=== PATIENT | female | born 1935 | race Caucasian/White ===

== ENCOUNTER 2019-07-06 13:17 | Inpatient (IN) | payer SELFPAY ==
[~2019-07-06] VITALS: Ht 170.2 cm; Wt 68.5 kg
--- NOTE | 2019-07-06 13:20 | NUR ---
PT bibdaughter from home, came in due to increasing anxiety, not eating and taking her meds,changes in behavior last 2-3 months, pt is aaox4, not in respiratory distress ,hooked to monitor, kept rested and comfortable, will continue to monitor.
--- NOTE | 2019-07-06 13:35 | NUR ---
SEEN AND EXAMINED BY .
--- NOTE | 2019-07-06 13:50 | NUR ---
ER PHLEB AT BEDSIDE FOR BLOOD DRAW.
--- NOTE | 2019-07-06 13:57 | NUR ---
URINAL GIVEN BUT UNABLE TO PROVIDE URINE SPECIMEN THIS TIME.
[2019-07-06 13:59] LABS: BASOPHILS % (AUTO) 0.4 % (0.0-2.0); EOSINOPHILS % (AUTO) 0.4 % (0.0-6.0); HEMATOCRIT 37 % (33-45); HEMOGLOBIN 12.5 g/dL (11.5-14.8); LYMPHOCYTES # (AUTO) 0.7 /CMM (0.8-4.8); MEAN CORPUSCULAR HGB CONC 34 g/dl (31.0-36.0); MEAN CORPUSCULAR VOLUME 98 fL (82-100); MONOCYTES # (AUTO) 0.5 /CMM (0.1-1.30); MONOCYTES % (AUTO) 8.8 % (2.0-12.0); NEUTROPHILS # (AUTO) 4.8 /CMM (1.8-8.9); NEUTROPHILS % (AUTO) 78.4 % (43.0-81.0); PLATELET COUNT (AUTO) 213 /CMM (150-450); RED BLOOD CELL COUNT(AUTO) 3.75 MIL/uL (4.0-5.2); WHITE BLOOD COUNT (AUTO) 6.1 K/uL (4.3-11.0)
[2019-07-06 14:06] LABS: CARBON DIOXIDE 29 mmol/L (21-32); CHLORIDE 97 mmol/L (98-107); CREATININE 1.1 mg/dL (0.6-1.3); GLUCOSE 157 mg/dL (74-106); POTASSIUM 4.3 mmol/L (3.5-5.1); SODIUM SERUM 130 mmol/L (136-145); UREA NITROGEN, BLOOD 18 mg/dL (7-18)
[2019-07-06] MEDS ORDERED: ZOLP10TA2 PO (14:07)
[2019-07-06] MEDS ORDERED: EZET10TA16 PO (14:07)
[2019-07-06] MEDS ORDERED: LISI10TA5 PO (14:07)
[2019-07-06] MEDS ORDERED: ESCI10TA PO (14:07)
[2019-07-06] MEDS ORDERED: MELA5TAB PO (14:07)
[2019-07-06] MEDS ORDERED: LISI-603 PO (14:07)
[2019-07-06] MEDS ORDERED: CLON0.5T4 PO ×2 (14:07)
--- NOTE | 2019-07-06 14:19 | NUR ---
urine specimen collected and sent to lab.
[2019-07-06 14:25] LABS: ALANINE AMINOTRANSFERASE 23 U/L (12-78); ALBUMIN 3.7 g/dL (3.4-5.0); ALCOHOL, BLOOD < 3 mg/dL (0-0); ALKALINE PHOSPHATASE 59 U/L (46-116); ASPARTATE AMINOTRANSFERASE 16 U/L (15-37); BILIRUBIN,DIRECT 0.1 mg/dL (0.0-0.2); BILIRUBIN,TOTAL 0.2 mg/dL (0.2-1.0); SALICYLATE 1.4 mg/dL (2.8-20.0); TOTAL PROTEIN, SERUM 6.4 g/dL (6.4-8.2)
[2019-07-06 14:26] LABS: ACETAMINOPHEN < 2 ug/ml (10-30)
[2019-07-06 14:29] LABS: APPEARANCE,URINE SL CLOUDY (CLEAR); BILIRUBIN,URINE NEGATIVE (NEGATIVE); BLOOD, URINE NEGATIVE Ery/uL (NEGATIVE); COLOR,URINE YELLOW (YELLOW); KETONES,URINE NEGATIVE (NEGATIVE); LEUKOCYTE ESTERASE ,URINE NEGATIVE (NEGATIVE); NITRITE, URINE NEGATIVE (NEGATIVE); PROTEIN,URINE NEGATIVE (NEGATIVE); UGLUCOSE NEGATIVE (NEGATIVE); UROBILINOGEN,URINE 0.2 EU/dL (0.2)
--- NOTE | 2019-07-06 14:31 | NUR ---
RADHA BHATIA AT BEDSIDE FOR EVAL.
[2019-07-06 14:49] LABS: BACTERIA,URINE 1+ /HPF (None Seen); RBC,URINE 0-2 /HPF (0-2); SQUAMOUS EPITHELIAL CELL,UR Moderate /HPF (None Seen); WBC,URINE 0-2 /HPF (0-3)
--- NOTE | 2019-07-06 15:46 | NUR ---
NURSING SUP GAVE [facility] BED 217A.
--- NOTE | 2019-07-06 16:02 | NUR ---
REPORT GIVEN TO JANNETTE JOYCE FOR SANDEEP.
[2019-07-06] MEDS ORDERED: ACETAMINOPHEN 325 MG TABLET PO PRN (17:00)
[2019-07-06] MEDS ORDERED: ZOLPIDEM TARTRATE 5 MG TABLET PO PRN (17:00)
[2019-07-06] MEDS ORDERED: BLOOD SUGAR DIAGNOSTIC 1 EACH STRIP IN ONE (17:00)
[2019-07-06] MEDS ORDERED: MAG HYDROX/AL HYDROX/SIMETH 30 ML UDC PO PRN (17:00)
[2019-07-06] MEDS ORDERED: LORAZEPAM 0.5 MG TABLET PO PRN (17:00)
--- NOTE | 2019-07-06 17:46 | NUR ---
Dr. Sharma made aware of the admission and with orders and Bertrand RNP made of gianna admission and reconciled meds.
[2019-07-06] MEDS ORDERED: ZOLPIDEM TARTRATE 10 MG TABLET PO PRN (18:00)
--- NOTE | 2019-07-06 19:00 | NUR ---
GPS OIL FIRE SPECIALIST NOTES: PT WAS ADMITTED TO [facility] AT 07/06/19 AT 1640 FROM ER DEPARTMENT. PT IS A 83 Y/O FEMALE. ON A VOLUNTARY HOLD. PER PT CLAIMS SHE IS HERE BECAUSE SHE CANT SLEEP. UPON FACE TO FACE ASSESSMENT PT IS A/ O X3-4, COOPERATIVE, ANXIOUS, WORRIED, FRIENDLY AND NEEDY. PT CHAVEZ SI AND HI AT THIS TIME. PT STATED, "IM HERE BECAUSE I WASNT ABLE TO SLEEP." PT SIGNED CONSENT PAPERS. ENVIRONMENTAL SAFETY CHECK Q15MIN. ENCOURAGE PT TO VERBALIZE FEELINGS AND CONCERNS. ORIENTED TO THE UNIT. BELONGING AND CONTRABAND WERE DONE AND CHECKED. NURSINF ASSESSMENT DONE.. SKIN INTACT AND FACE PICTURE IN THE CHART. PT RIGHTS DISCUSS BY HEADING MATCHER AND ASSEMBLER. PROVIDED PT WITH HANDBOOK AND MED GUIDE. VITALS TAKEN ANS WNL. NO S/S PF RESP DISTRESS. BREATHING EVEN AND UNLABORED. CONTINUE TO MONITOR.
[2019-07-06 20:00] VITALS: BP 144/83
[2019-07-06] MEDS: MAGNESIUM HYDROXIDE 30 ML UDC PO PRN (21:44)
--- NOTE | 2019-07-06 21:45 | NUR ---
GPS RN NOTES: C/O OF CONSTIPATION PT C/O OF CONSTIPATION. PT STATED, " I FEEL CONSTIPATED". OFFERED MOM 15ML. PT AGREED AND TOLERATED MEDICATION WELL. CONTINUE TO MONITOR.
--- NOTE | 2019-07-06 22:57 | NUR ---
GPS RN NOTES: C/O OF INSOMNIA PT C/O UNABLE TO SLEEP. [id number] AMBIEN 5MG PO PRN ORDERED. PT AGREED AND TOLERTAED MEDICATION WELL. CONTINUE TO MONITOR.
[2019-07-06 23:48] VITALS: BP 144/83
--- NOTE | 2019-07-07 02:13 | NUR ---
GPS RN NOTES:C/O ANXIOUS PT C/O OF FEELING ANXIOUS. CHECKED PT VITALS WNL. OFFERED ATIVAN 1MG PO PRN ORDERED. PT AGREED AND TOLERATED MEDICATION WELL. CONTINUE TO MONITOR.
[2019-07-07 02:16] VITALS: BP 143/60
[2019-07-07 07:48] LABS: ALBUMIN 3.5 g/dL (3.4-5.0); BILIRUBIN,TOTAL 0.3 mg/dL (0.2-1.0); CALCIUM, SERUM 9.2 mg/dL (8.5-10.1); CREATININE 0.7 mg/dL (0.6-1.3); POTASSIUM 4.7 mmol/L (3.5-5.1); TOTAL PROTEIN, SERUM 6.3 g/dL (6.4-8.2)
[2019-07-07 07:58] LABS: CHOLESTEROL 182 mg/dL (<200); HDL CHOLESTEROL 69 mg/dL (40-60); LDL 99 mg/dL (0-99); TRIGLYCERIDES 92 mg/dL (30-150)
[2019-07-07 08:00] VITALS: BP 121/76
[2019-07-07] MEDS: LISINOPRIL (10MG) 10 MG TABLET PO SCH (08:53)
[2019-07-07] MEDS: EZETIMIBE 10 MG TABLET PO SCH (08:53)
--- NOTE | 2019-07-07 10:31 | NUR ---
INDIVIDUAL MEETING: KAJAL met with 83 year old pt at [facility] who was BIB daughter from home due to increased anxiety and depression. Pt was admitted to [facility] as a voluntary admission. Pt is unhappy with the treatment she is currently receiving stating, "I was expecting to be in a private room since I am paying out of pocket to be here, I was expecting to be under 24 hour evaluation by a treatment team that will be monitoring my blood level and see how my medication is affecting me and if it works. I was expecting to be hooked up to machines and a study to be happening." Pt then stated that she was unhappy that her belongings were confiscated and that she was unable to have a cell phone, hand dewaxer, or medications available to her. Pt was in distress and kept putting her hands to her face when KAJAL explained the policies and procedures for the unit. SW also informed her that psychiatrist will be coming on this present day to evaluate her and pt was upset that he still has not seen her. KAJAL explained that MD's have 24 hours from admission to see a pt and pt became agitated. Pt stated that she wanted to leave as she was not receiving the care she was hoping for and SW encouraged her to wait for psychiatrist to evaluate her and discuss treatment before making a decision. Pt agreed.
--- NOTE | 2019-07-07 10:45 | NUR ---
FAMILY CONTACT: SW contacted pts daughter Emily [phone] and left a voicemail for callback to discuss pts treatment and discharge plan.
--- NOTE | 2019-07-07 12:26 | NUR ---
TREATMENT TEAM MEETING: and KAJAL met with pt at bedside to discuss pts treatment plan. Pt is resistant to treatment and focused on MD not tapering down on the Klonopin. reminded pt that she is here voluntarily and can leave at anytime she wishes. also informed pt that she can continue her treatment and medication management with her outside psychiatrist. Pt stated that she did not want to make a decision before speaking to her daughter first.
--- NOTE | 2019-07-07 13:24 | NUR ---
GPS/RN-NOTES SOCIAL SERVICES COORDINATOR VERIFIED REGARDING KLONOPIN ORDER WITH DR. DRAKE.DESPITE SOCIAL SERVICES COORDINATOR MADE DR. DRAKE AWARE REGARDING PATIENT'S DTR CAN PERALTA STATEMENT EARLIER IN THE MORNING BY PHONE THAT PATIENT CAN NOT TAKE KLONOPIN. . DR. DRAKE STATED" TO OK TO GIVE KLONOPIN ORDERED".
[2019-07-07] MEDS: clonazePAM 0.5 MG TABLET PO SCH ×2 (13:38→17:02)
[2019-07-07] MEDS: ESCITALOPRAM OXALATE (10 MG) 10 MG TABLET PO SCH (13:38)
[2019-07-07] MEDS ORDERED: CRANBERRY PO (14:47)
[2019-07-07] MEDS ORDERED: CRANBERRY PO SCH (15:30)
[2019-07-07] MEDS ORDERED: D MANNOSE PO SCH (15:30)
[2019-07-07 16:00] VITALS: BP 101/60
[2019-07-07] MEDS: OXYBUTYNIN CHLORIDE ER 5 MG TAB PO SCH (17:02)
[2019-07-07 20:35] VITALS: BP 101/62
[2019-07-07] MEDS: MAGNESIUM HYDROXIDE 30 ML UDC PO PRN (21:22)
[2019-07-07] MEDS ORDERED: QUETIAPINE FUMARATE 25 MG TABLET PO SCH (22:00)
[2019-07-08 09:00] VITALS: BP 126/75
[2019-07-08] MEDS ORDERED: METFORMIN 500 MG TABLET PO SCH (09:00)
[2019-07-08] MEDS: ESCITALOPRAM OXALATE (10 MG) 10 MG TABLET PO SCH (09:08)
[2019-07-08] MEDS: OXYBUTYNIN CHLORIDE ER 5 MG TAB PO SCH (09:08)
[2019-07-08] MEDS: EZETIMIBE 10 MG TABLET PO SCH (09:08)
[2019-07-08] MEDS: clonazePAM 0.5 MG TABLET PO SCH (09:08)
[2019-07-08 09:09] VITALS: BP 126/75
[2019-07-08] MEDS: LISINOPRIL (10MG) 10 MG TABLET PO SCH (09:09)
--- NOTE | 2019-07-08 09:10 | NUR ---
INITIAL DISCHARGE PLAN: Pt wishes to return home [address] [facility] [address]. SW will help form a safe and proper discharge in collaboration with .
[2019-07-08] MEDS ORDERED: hydrOXYzine PAMOATE 50 MG CAPSULE PO PRN (09:30)
[2019-07-08] MEDS ORDERED: CRANBERRY PO SCH (10:00)
[2019-07-08] MEDS ORDERED: D MANNOSE PO SCH (10:00)
[2019-07-08] MEDS ORDERED: hydrOXYzine PAMOATE 25 MG CAPSULE PO PRN (10:00)
--- NOTE | 2019-07-08 11:04 | NUR ---
FAMILY CONTACT: SW received a call from pts daughter Juliana [phone], SW explained treatment and diagnosis. SW informed daughter that pt was diagnosed with Diabetes and Hyperactive Bladder and is now receiving medication for it. SW also stated that pt slept 8 hours last night and is responding well to the new medication regimen. Daughter stated that she wanted to pick pt up on this present day and SW proceeded with pts discharge planning.
--- NOTE | 2019-07-08 11:13 | NUR ---
DISCHARGE NOTE: Pt will be discharged at 1:00pm via private vehicle home to [address] [place] [address]. Pts daughter Juliana [phone] will be picking pt up and transporting home. Pts mood is euthymic with congruent affect. Pt denied visual/auditory hallucinations and denied suicidal/homicidal ideation. Pt will be under the care of Psychiatrist: Dr. Shea Mcnamara Address: [address], [place] [address] and Validation Software Facilitator: Dr. Adebayo Maravilla Address: [address], [place] [address] . The multidisciplinary exit care form was done, printed, signed, and given to the patient. Addendum: 07/08/19 at 1122 by RONALDO RDZ KAJAL faxed clinicals to Psychiatrist: Dr. Shea Mcnamara Address: [address], [place] [address] and left a voicemail for a follow up appointment. Pt will also follow up at [facility] [address] [place] [address] .
--- NOTE | 2019-07-08 13:45 | NUR ---
GPS/RN-NOTES PATIENT DISCHARGE TO HOME WITH HER DTR ANABELA GUARDADO. DR. DRAKE AND DR. GOVEA MADE AWARE AND AGREED OF THE DISCHARGE WITH ORDERS. PATIENT DID NOT VERBALIZE SI/HI,DENIES VISUAL AUDITORY HALLUCINATIONS AT THE TIME OF DISCHARGE. ALL DISCHARGE PAPERS WAS SIGN BY THE PATIENT .ALL DISCHARGE MEDICATIONS WAS REVIEWED WITH THE PATIENT AND DTR WITH UNDERSTANDING. RX WAS GIVEN TO THE DTR .INSTRUCTED PATIENT AND DTR TO FOLLOW UP WITH PCP AND GO TO THE NEAREST EMERGENCY ROOM IN CASE OF EMERGENCY. 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 PATIENT ABLE TO AMBULATE WITH STEADY GAIT.PATIENT WAS WHEELED BY ONE STAFF IN THE LOBBY FOR SAFETY. PATIENT LEFT THE UNIT IN STABLE CONDITION ALERT ORIENTED X3 WITH ALL BELONGINGS.
== END 2019-07-08 13:45 | disposition home or self-care (01) | DRG 885 ==
LOC: ER 13:29 → GPS 15:50
PROVIDERS: ADMIT Psychiatry & Neurology Psychiatry; ATTEND Nurse Practitioner Acute Care
DX: F33.1 Major depressive disorder, recurrent, moderate (principal); E87.1 Hypo-osmolality and hyponatremia; F13.20 Sedative, hypnotic or anxiolytic dependence, uncomplicated; E78.5 Hyperlipidemia, unspecified; E11.9 Type 2 diabetes mellitus without complications; M19.90 Unspecified osteoarthritis, unspecified site; G47.00 Insomnia, unspecified; Z79.84 Long term (current) use of oral hypoglycemic drugs; Z95.0 Presence of cardiac pacemaker; I10 Essential (primary) hypertension; Z96.652 Presence of left artificial knee joint; Z96.643 Presence of artificial hip joint, bilateral; Z98.890 Other specified postprocedural states; N32.81 Overactive bladder
CPT/HCPCS: 36415; 80048-TC; 80053-TC; 80061-TC; 80076-TC; 80305; 81000-TC; 82962-TC; 85025-TC; 87081-TC; 87086-TC; G0480; Q0177